=== PATIENT | female | born 1980 | race Caucasian/White ===

== ENCOUNTER → 2021-06-20 | Outpatient (CLI) | payer OTHER ==
[~2021-06-20] MED LIST: LIB5 PO
[2021-06-21 03:06] LABS: RUBELLA AB IGG-REFLAB <0.90 index (Immune >0.99); RUBEOLA (MEASLES) IGG <13.5 AU/mL (Immune >16.4)
== END | disposition home or self-care (01) ==
LOC: LABMN 13:25
PROVIDERS: ATTEND Internal Medicine
DX: Z02.1 Encounter for pre-employment examination (principal)
CPT/HCPCS: 86706; 86735; 86762; 86765; 86787

== ENCOUNTER 2024-11-15 07:19 | Emergency (ER) | payer MEDICAID ==
[~2024-11-15] VITALS: Ht 165.1 cm; Wt 54.0 kg
[~2024-11-15 07:19] MED LIST changes: +ACYC400T20 PO; +ALBU18HF12 IH; +CHLO10CA7 PO; +FOLI-130 PO; +GABA-534 PO; +IBUP-2070 PO; +LAMO25TA36 PO; -LIB5 PO; +NALT50TA6 PO; +QUET200T30 PO; +SENN-374 PO; +THIA100T80 PO
[2024-11-15 07:30] VITALS: BP 148/100; PULSE 98; RESP 18; TEMP 98.4; O2SAT 98
[2024-11-15 07:47] LABS: COVID AG,FIA SOURCE NASAL SWAB
[2024-11-15 08:31] LABS: SARS-COV2 (COVID) ANTIGEN,FIA Negative (Negative)
[2024-11-15 08:33] LABS: INFLUENZA TYPE A NEGATIVE FOR TYPE A (NEGATIVE); INFLUENZA TYPE B NEGATIVE FOR TYPE B (NEGATIVE)
[2024-11-15 09:52] LABS: ALCOHOL, URINE DRUG SCREEN POSITIVE (NEGATIVE); AMPHET/METH SCREEN,URINE POSITIVE (NEGATIVE); BARBITURATE SCREEN, URINE NEGATIVE (NEGATIVE); BENZODIAZEPINES SCREEN,URINE NEGATIVE (NEGATIVE); CANNABINOID SCREEN,URINE NEGATIVE (NEGATIVE); COCAINE SCREEN,URINE NEGATIVE (NEGATIVE); METHADONE SCREEN, URINE NEGATIVE (NEGATIVE); OPIATE SCREEN,URINE NEGATIVE (NEGATIVE); PHENCYCLIDINE SCREEN,URINE NEGATIVE (NEGATIVE)
== END 2024-11-15 10:12 | disposition left against medical advice (07) ==
LOC: EMS 07:19
DX: F41.9 Anxiety disorder, unspecified (principal); Z53.21 Procedure and treatment not carried out due to patient leaving prior to being seen by health care provider; Z20.822 Contact with and (suspected) exposure to COVID-19
CPT/HCPCS: 80307; 87804; 88360

== ENCOUNTER 2025-09-04 09:08 | Emergency (ER) | payer MEDICAID ==
[~2025-09-04] VITALS: Ht 166.4 cm; Wt 54.5 kg
[~2025-09-04 09:08] MED LIST changes: +ACYC-428 PO; -ACYC400T20 PO; -IBUP-2070 PO; +IBUP600 PO
[2025-09-04 10:40] LABS: APPEARANCE,URINE CLEAR (CLEAR); GLUCOSE, URINE (UA) NEGATIVE (NEGATIVE); LEUKOCYTE ESTERASE ,URINE NEGATIVE (NEGATIVE); NITRATE,URINE NEGATIVE (NEGATIVE); OCCULT BLOOD,URINE NEGATIVE (NEGATIVE); PH,URINE DRUG SCREEN 7.5 (5.0-8.0); SPECIFIC GRAVITIY, URINE 1.025 (1.003-1.030)
[2025-09-04 10:44] LABS: SQUAMOUS EPITHELIAL CELL,UR Moderate /LPF (None Seen)
[2025-09-04 10:48] LABS: ALCOHOL, URINE DRUG SCREEN NEGATIVE (NEGATIVE); AMPHET/METH SCREEN,URINE NEGATIVE (NEGATIVE); BARBITURATE SCREEN, URINE NEGATIVE (NEGATIVE); CANNABINOID SCREEN,URINE NEGATIVE (NEGATIVE); COCAINE SCREEN,URINE NEGATIVE (NEGATIVE); METHADONE SCREEN, URINE NEGATIVE (NEGATIVE)
[2025-09-04 11:34] LABS: PLATELET COUNT (AUTO) 379 K/uL (150-450); RED BLOOD CELL COUNT(AUTO) 4.23 MIL/uL (4.00-5.20); RED CELL DISTRIBUTION WIDTH 14.0 % (11.5-14.5); WHITE BLOOD COUNT (AUTO) 7.2 K/uL (4.5-11.0)
[2025-09-04 11:45] LABS: CALCIUM, TOTAL 8.4 mg/dL (8.8-10.5); CREATININE 0.41 mg/dL (0.60-1.30); GLOMERULAR FILTR. RATE CALC > 60 mL/min (>60); GLUCOSE,RANDOM 71 mg/dL (70-110); SODIUM SERUM 136 mmol/L (136-145); UREA NITROGEN, BLOOD 12 mg/dL (7-18)
[2025-09-04 14:04] VITALS: TEMP 97.2
[2025-09-04] MEDS ORDERED: CHLO25CA6 PO (14:10)
[2025-09-04 14:14] VITALS: BP 129/88; PULSE 62; RESP 20; O2SAT 97
== END 2025-09-04 14:41 | disposition home or self-care (01) ==
LOC: EMS 09:08
DX: F10.229 Alcohol dependence with intoxication, unspecified (principal); F32.A Depression, unspecified; F41.9 Anxiety disorder, unspecified; M06.9 Rheumatoid arthritis, unspecified; G43.909 Migraine, unspecified, not intractable, without status migrainosus; F17.210 Nicotine dependence, cigarettes, uncomplicated; F15.90 Other stimulant use, unspecified, uncomplicated; Z79.624 Long term (current) use of inhibitors of nucleotide synthesis; Z79.899 Other long term (current) drug therapy; Z88.2 Allergy status to sulfonamides; Y90.9 Presence of alcohol in blood, level not specified
CPT/HCPCS: 99285; 80048; 81001; 84702; 85025; 36415; 80307; G0480